=== PATIENT | female | born 1940 | race American Indian/Alaskan Native ===

== ENCOUNTER 2017-04-16 23:04 | Emergency (ER) | payer MEDICARE ==
--- NOTE | 2017-04-17 00:44 | Emergency Department Report ---
ED Fall HPI - General Chief Complaint: Fall Stated Complaint: BACK/LEG PAIN Time Seen by Provider: 04/17/17 00:23 Source: patient, EMS Mode of arrival: Stretcher - History of Present Illness Initial Comments: Patient was probably personal [facility]. Patient apparently had fallen out of a chair about 3 hours prior to presenting and according to the AIDS she was complaining of some back and bilateral leg pain. However here the patient has no complaints. MD Complaint: fall When Fall Occurred: 1-[address] Fall Occurred: custodial/SNF Loss of Consciousness: none - Related Data Home Medications Medication Instructions Recorded Confirmed Last Taken Valsartan [Diovan] 160 mg PO QDAY 04/05/15 04/17/17 04/17/17 amLODIPine [Norvasc] 10 mg PO DAILY 04/05/15 04/17/17 04/17/17 Acetaminophen [Mapap] 500 mg PO Q6H 04/17/17 04/17/17 04/16/17 Dabigatran Etexilate Mesylate 150 mg PO BID 04/17/17 04/17/17 04/16/17 [Pradaxa] Diclofenac Sodium [Voltaren] 100 gm TP QID PRN 04/17/17 04/17/17 04/16/17 Hydrochlorothiazide [HCTZ] 25 mg PO QDAY 04/17/17 04/17/17 04/17/17 Lidocaine Topical 5% [Xylocaine 35.44 gm TP Q12H PRN 04/17/17 04/17/17 04/16/17 Topical 5%] Memantine HCl [Namenda] 5 mg PO BID 04/17/17 04/17/17 04/17/17 Mirtazapine 15 mg PO HS 04/17/17 04/17/17 04/16/17 Rivaroxaban [Xarelto] 20 mg PO QDAY 04/17/17 04/17/17 04/16/17 Trazodone HCl [traZODone] 500 mg PO QHS 04/17/17 04/17/17 04/16/17 amLODIPine [Norvasc] 5 mg PO DAILY 04/17/17 04/17/17 04/16/17 Allergies Allergy/AdvReac Type Severity Reaction Status Date / Time Penicillins Allergy Unknown Verified 10/17/13 21:28 tomato [Tomato] Allergy Unknown Verified 10/17/13 21:28 ED Review of Systems ROS: Stated complaint: BACK/LEG PAIN Other details as noted in HPI Comment: All other systems reviewed and negative ED Past Medical Hx - Past Medical History Previous Medical History?: Yes Hx Hypertension: Yes Hx Dementia: Yes - Surgical History Past Surgical History?: No - Social History Smoking Status: Former Smoker Substance Use Type: None - Medications Home Medications: Home Medications Medication Instructions Recorded Confirmed Last Taken Type Valsartan [Diovan] 160 mg PO QDAY 04/05/15 04/17/17 04/17/17 History amLODIPine [Norvasc] 10 mg PO DAILY 04/05/15 04/17/17 04/17/17 History Acetaminophen [Mapap] 500 mg PO Q6H 04/17/17 04/17/17 04/16/17 History Dabigatran Etexilate Mesylate 150 mg PO BID 04/17/17 04/17/17 04/16/17 History [Pradaxa] Diclofenac Sodium [Voltaren] 100 gm TP QID PRN 04/17/17 04/17/17 04/16/17 History Hydrochlorothiazide [HCTZ] 25 mg PO QDAY 04/17/17 04/17/17 04/17/17 History Lidocaine Topical 5% [Xylocaine 35.44 gm TP Q12H PRN 04/17/17 04/17/17 04/16/17 History Topical 5%] Memantine HCl [Namenda] 5 mg PO BID 04/17/17 04/17/17 04/17/17 History Mirtazapine 15 mg PO HS 04/17/17 04/17/17 04/16/17 History Rivaroxaban [Xarelto] 20 mg PO QDAY 04/17/17 04/17/17 04/16/17 History Trazodone HCl [traZODone] 500 mg PO QHS 04/17/17 04/17/17 04/16/17 History amLODIPine [Norvasc] 5 mg PO DAILY 04/17/17 04/17/17 04/16/17 History ED Physical Exam - General Limitations: Physical Limitation General appearance: alert, in no apparent distress - Head Head exam: Present: atraumatic, normocephalic - Eye Eye exam: Present: normal appearance Pupils: Present: normal accommodation - ENT ENT exam: Present: mucous membranes moist - Neck Neck exam: Present: normal inspection. Absent: tenderness - Respiratory Respiratory exam: Present: normal lung sounds bilaterally. Absent: respiratory distress - Cardiovascular Cardiovascular Exam: Present: regular rate, normal rhythm. Absent: systolic murmur, diastolic murmur, rubs, gallop - GI/Abdominal GI/Abdominal exam: Present: soft, normal bowel sounds. Absent: tenderness - Rectal Rectal exam: Present: deferred - Extremities Exam Extremities exam: Present: normal inspection, pedal edema (pedal edema bilaterally). Absent: tenderness - Back Exam Back exam: Present: normal inspection. Absent: full ROM - Neurological Exam Neurological exam: Present: alert, oriented X3, CN II-XII intact - Psychiatric Psychiatric exam: Present: normal affect, normal mood - Skin Skin exam: Present: warm, dry, intact, normal color. Absent: rash ED Course Vital Signs 04/17/17 04/17/17 00:18 00:19 Temperature 98.1 F Pulse Rate 89 86 Respiratory 100 H Rate Blood Pressure 139/86 [Right] Critical care attestation.: If time is entered above; I have spent that time in minutes in the direct care of this critically ill patient, excluding procedure time. ED Disposition Clinical Impression: Fall Disposition: DC-01 TO HOME OR SELFCARE Is pt being admited?: No Does the pt Need Aspirin: No Condition: Stable Instructions: Fall Prevention for Older Adults (ED) Referrals: PARKER LOZADA MD [Primary Care Provider] - 3-5 Days Time of Disposition: 00:45 Print Language: EMIRATI
[2017-04-17 00:52] VITALS: BP 148/48
== END 2017-04-17 04:04 | disposition home or self-care (01) ==
LOC: ED 23:04
DX: M79.605 Pain in left leg (principal); M79.604 Pain in right leg; I10 Essential (primary) hypertension; Z87.891 Personal history of nicotine dependence; F03.90 Unspecified dementia, unspecified severity, without behavioral disturbance, psychotic disturbance, mood disturbance, and anxiety; Z88.0 Allergy status to penicillin; Z91.018 Allergy to other foods; W07.XXXA Fall from chair, initial encounter; Y93.89 Activity, other specified; Y92.89 Other specified places as the place of occurrence of the external cause; Y99.8 Other external cause status
CPT/HCPCS: 99283